=== PATIENT | female | born 1995 | race Caucasian/White ===

== ENCOUNTER 2019-07-17 07:30 | Inpatient (IN) | payer MEDICAID ==
[~2019-07-17] VITALS: Ht 172.7 cm; Wt 146.5 kg
[2019-07-17] MEDS ORDERED: LR 1,000 ML IV ONE (10:57)
[2019-07-17] MEDS ORDERED: CEFAZOLIN 2 GM IVPB PREMIX 50 ML IV ONE ×2 (11:00→12:45)
[2019-07-17 11:44] LABS: BASOPHILS # (AUTO) 0.1 K/uL (0.0-0.2); BASOPHILS % (AUTO) 0.6 % (0.0-2.0); EOSINOPHILS # (AUTO) 0.1 K/uL (0.0-0.4); HEMATOCRIT 33.4 % (36-48); HEMOGLOBIN 10.6 g/dL (12.0-16.0); LYMPHOCYTES % (AUTO) 14.8 % (20.5-51.5); MEAN CORPUSCULAR HEMOGLOBIN 23 pg (27-31); MEAN CORPUSCULAR HGB CONC 32 % (32-36); MEAN CORPUSCULAR VOLUME 72 fL (79.0-98.0); MONOCYTES # (AUTO) 0.6 K/uL (0.0-1.0); MONOCYTES % (AUTO) 4.3 % (1.7-9.3); NEUTROPHILS # (AUTO) 10.7 K/uL (1.8-7.7); NEUTROPHILS % (AUTO) 79.3 % (40.0-70.0); PLATELET COUNT (AUTO) 328 K/uL (130-430); RED BLOOD CELL COUNT(AUTO) 4.65 MIL/uL (4.2-6.2); RED CELL DISTRIBUTION WIDTH 14.6 % (9.0-15.0); WHITE BLOOD COUNT (AUTO) 13.6 K/uL (4.8-10.8)
[2019-07-17] MEDS ORDERED: NS IRRIG SOLN 1000 ML IR ONE (12:45)
[2019-07-17] MEDS ORDERED: MIDAZOLAM HCL 5 MG/5 ML VIAL IVP ONE (12:45)
[2019-07-17] MEDS ORDERED: fentaNYL CITRATE 250 MCG/5 ML AMP IV ONE (12:45)
[2019-07-17] MEDS ORDERED: MORPHINE SULFATE 10MG/10ML PF AMP EP ONE (12:45)
[2019-07-17] MEDS ORDERED: OXYTOCIN 10 UNIT/ML VIAL IV ONE (12:45)
[2019-07-17] MEDS ORDERED: SUCCINYLCHOLINE CHLORIDE 20 MG/ML(QUELICIN) IVP ONE (12:45)
[2019-07-17] MEDS ORDERED: METHYLERGONOVINE MALEATE 0.2 MG/ML AMP IM ONE (12:45)
[2019-07-17] MEDS ORDERED: ONDANSETRON HCL 4 MG/2 ML VIAL IVP ONE (12:45)
[2019-07-17] MEDS ORDERED: SEVOFLURANE 15 MIN GAS INH ONE (12:45)
[2019-07-17] MEDS ORDERED: LR 1,000 ML IV.SOLN IV ONE (12:45)
[2019-07-17] MEDS ORDERED: PROPOFOL 200MG/ 20ML VIAL (DIPRIVAN) IV ONE (12:45)
[2019-07-17] MEDS ORDERED: LR 1,000 ML IV SCH (14:05)
[2019-07-17] MEDS ORDERED: HYDROmorphone 1 MG INJ. 1 MG/ML AMPUL IVP PRN ×2 (14:15)
[2019-07-17] MEDS ORDERED: METOCLOPRAMIDE HCL 10 MG/2 ML VIAL IVP PRN (14:15)
[2019-07-17] MEDS ORDERED: HYDROmorphone 2 MG/ML VIAL IVP PRN (14:15)
[2019-07-17] MEDS ORDERED: HYDROmorphone 2 MG/ML VIAL ONE (14:20)
[2019-07-17] MEDS ORDERED: OXYTOCIN/0.9 % SODIUM CHLORIDE 1,000 ML IV ONE ×2 (14:20→18:15)
[2019-07-17] MEDS ORDERED: OXYTOCIN/0.9 % SODIUM CHLORIDE 1,000 ML IV SCH (14:45)
[2019-07-17] MEDS ORDERED: HYDROmorphone 1 MG INJ. 1 MG/ML AMPUL ONE (15:15)
[2019-07-17] MEDS ORDERED: ANUSOL 1 EA SUPP.RECT (PREPARATION H) RC PRN (18:15)
[2019-07-17] MEDS ORDERED: LANOLIN 7 GM OINT. TP PRN (18:15)
[2019-07-17] MEDS ORDERED: BISACODYL 10 MG/SUPPOSITORY RC PRN (18:15)
[2019-07-17] MEDS ORDERED: SENNOSIDES/DOCUSATE SODIUM 1 TAB TABLET(SENOKOT-S) PO PRN (18:15)
[2019-07-17] MEDS ORDERED: DIPH-TET-PERTUS Vaccine 0.5 ML VIAL (ADACEL) I.M. PRN (18:15)
[2019-07-17] MEDS ORDERED: OXYCODONE/ACETAMINOPHEN 5-325 TABLET PO PRN (19:45)
[2019-07-17] MEDS: SIMETHICONE 80 MG TAB.CHEW PO PRN (20:26)
[2019-07-17] MEDS ORDERED: TEMAZEPAM 15 MG CAPSULE PO PRN (21:00)
[2019-07-17] MEDS: OXYCODONE/ACETAMINOPHEN 5-325 TABLET PO PRN (22:24)
[2019-07-18] MEDS: IBUPROFEN 600 MG TABLET PO SCH ×4 (00:16→17:55)
[2019-07-18] MEDS: SIMETHICONE 80 MG TAB.CHEW PO PRN ×4 (00:16→15:15)
[2019-07-18] MEDS: DOCUSATE SODIUM 100 MG CAPSULE PO PRN ×2 (05:09→17:54)
[2019-07-18 07:39] LABS: BASOPHILS % (AUTO) 0.2 % (0.0-2.0); EOSINOPHILS # (AUTO) 0.3 K/uL (0.0-0.4); HEMATOCRIT 27.6 % (36-48); LYMPHOCYTES # (AUTO) 2.3 K/uL (1.0-5.5); LYMPHOCYTES % (AUTO) 18.1 % (20.5-51.5); MEAN CORPUSCULAR HEMOGLOBIN 24 pg (27-31); MEAN CORPUSCULAR HGB CONC 33 % (32-36); MEAN CORPUSCULAR VOLUME 72 fL (79.0-98.0); MONOCYTES % (AUTO) 8.1 % (1.7-9.3); NEUTROPHILS % (AUTO) 71.6 % (40.0-70.0); PLATELET COUNT (AUTO) 269 K/uL (130-430); RED BLOOD CELL COUNT(AUTO) 3.82 MIL/uL (4.2-6.2); RED CELL DISTRIBUTION WIDTH 14.3 % (9.0-15.0); WHITE BLOOD COUNT (AUTO) 12.5 K/uL (4.8-10.8)
[2019-07-18 07:48] VITALS: BP_SYST 121
[2019-07-18] MEDS: OXYCODONE/ACETAMINOPHEN 5-325 TABLET PO PRN (15:15)
[2019-07-19] MEDS: IBUPROFEN 600 MG TABLET PO SCH ×3 (00:02→12:00)
== END 2019-07-19 12:50 | disposition home or self-care (01) | DRG 540 ==
LOC: SPU 10:30
PROVIDERS: ADMIT Obstetrics & Gynecology; ATTEND Obstetrics & Gynecology
PROC: 10D00Z1 Extraction of Products of Conception, Low, Open Approach (ICD-10-PCS; principal; 2019-07-17 12:30)
DX: O16.4 Unspecified maternal hypertension, complicating childbirth (principal); E66.01 Morbid (severe) obesity due to excess calories; O34.211 Maternal care for low transverse scar from previous cesarean delivery; R71.0 Precipitous drop in hematocrit; Z3A.39 39 weeks gestation of pregnancy; Z37.0 Single live birth; O99.214 Obesity complicating childbirth
CPT/HCPCS: 36415; 85025; 86592; 86886; 86900; 86901; 94760; J0330; J0690; J1170; J2210; J2250; J2274; J2405; J2590; J2704; J3010; J7120

== ENCOUNTER 2021-03-02 05:15 | Inpatient (IN) | payer MEDICAID, SELFPAY ==
[~2021-03-02] VITALS: Ht 175.3 cm; Wt 154.2 kg
[2021-03-02] MEDS ORDERED: LR 1,000 ML IV ONE (05:30)
[2021-03-02 05:43] VITALS: BP_SYST 117
[2021-03-02] MEDS ORDERED: CEFAZOLIN 2 GM IVPB PREMIX 50 ML IV ONE ×2 (06:15→06:58)
[2021-03-02 06:36] LABS: BASOPHILS % (AUTO) 0.3 % (0.0-2.0); EOSINOPHILS # (AUTO) 0.2 K/uL (0.0-0.4); EOSINOPHILS % (AUTO) 1.5 % (0.0-4.0); HEMATOCRIT 29.5 % (36-48); HEMOGLOBIN 9.3 g/dL (12.0-16.0); LYMPHOCYTES # (AUTO) 2.4 K/uL (1.0-5.5); LYMPHOCYTES % (AUTO) 18.5 % (20.5-51.5); MEAN CORPUSCULAR HEMOGLOBIN 23 pg (27-31); MEAN CORPUSCULAR HGB CONC 32 % (32-36); MEAN CORPUSCULAR VOLUME 71 fL (79.0-98.0); MONOCYTES % (AUTO) 7.5 % (1.7-9.3); NEUTROPHILS # (AUTO) 9.2 K/uL (1.8-7.7); NEUTROPHILS % (AUTO) 72.2 % (40.0-70.0); PLATELET COUNT (AUTO) 277 K/uL (130-430); RED BLOOD CELL COUNT(AUTO) 4.15 MIL/uL (4.2-6.2); RED CELL DISTRIBUTION WIDTH 14.8 % (9.0-15.0); WHITE BLOOD COUNT (AUTO) 12.7 K/uL (4.8-10.8)
[2021-03-02 06:41] LABS: CALCIUM 8.4 mg/dL (8.4-11.0); CREATININE 0.53 mg/dL (0.55-1.30); POTASSIUM 3.4 mmol/L (3.5-5.1)
[2021-03-02 06:52] LABS: ALBUMIN 2.1 g/dL (3.4-4.8); TOTAL BILIRUBIN 0.1 mg/dL (0.0-1.0)
[2021-03-02] MEDS ORDERED: LR 1,000 ML IV.SOLN IV ONE (07:38)
[2021-03-02] MEDS ORDERED: MORPHINE SULFATE 10MG/10ML PF AMP EP ONE (07:38)
[2021-03-02] MEDS ORDERED: OXYTOCIN 10 UNIT/ML VIAL IM ONE (07:38)
[2021-03-02] MEDS ORDERED: ONDANSETRON HCL 4 MG/2 ML VIAL IVP ONE (07:38)
[2021-03-02] MEDS ORDERED: DEXAMETHASONE SOD PHOSPHATE 4 MG/ML VIAL IVP ONE ×2 (07:38→09:45)
[2021-03-02] MEDS ORDERED: BUPIVACAINE /PF 0.75% 10 ML VIAL INJ ONE (07:38)
[2021-03-02] MEDS ORDERED: NS IRRIG SOLN 1000 ML IR ONE (07:38)
[2021-03-02] MEDS ORDERED: KETOROLAC TROMETHAMINE 60 MG/2 ML VIAL IM PRN (08:30)
[2021-03-02] MEDS ORDERED: DIPHENHYDRAMINE INJ 50 MG/ML VIAL IVP PRN (08:30)
[2021-03-02] MEDS ORDERED: NALOXONE HCL 0.4 MG/ML AMP (NARCAN) IVP PRN ×2 (08:30)
[2021-03-02] MEDS ORDERED: ONDANSETRON HCL 4 MG/2 ML VIAL IVP PRN (08:30)
[2021-03-02 08:38] VITALS: BP_SYST 146
[2021-03-02] MEDS ORDERED: ONDANSETRON HCL 4 MG/2 ML VIAL ONE (09:10)
[2021-03-02] MEDS ORDERED: DEXAMETHASONE SOD PHOSPHATE 4 MG/ML VIAL ONE (09:34)
[2021-03-02] MEDS ORDERED: SCOPOLAMINE HYDROBROMIDE 1 MG PATCH .72 H (TRANSDERM-SCOP) TD SCH (10:00)
[2021-03-02] MEDS ORDERED: SCOPOLAMINE HYDROBROMIDE 1 MG PATCH .72 H (TRANSDERM-SCOP) TD ONE (10:00)
[2021-03-02] MEDS ORDERED: MEASLES,MUMPS&RUBELLA VACC/PF 12500 UNIT/0.5 ML VIAL SUBQ PRN (11:30)
[2021-03-02] MEDS ORDERED: LR 1,000 ML IV SCH (11:30)
[2021-03-02] MEDS ORDERED: HYDROcodone/ACETAMIN 5-325 MG TAB (NORCO/ VICODIN) PO PRN (11:30)
[2021-03-02] MEDS ORDERED: OXYTOCIN/0.9 % SODIUM CHLORIDE 1,000 ML IV ONE (11:30)
[2021-03-02] MEDS ORDERED: OXYCODONE/ACETAMINOPHEN 5-325 TABLET PO PRN (11:30)
[2021-03-02] MEDS ORDERED: LANOLIN 7 GM OINT. TP PRN (11:30)
[2021-03-02] MEDS ORDERED: BISACODYL 10 MG/SUPPOSITORY RC PRN (11:30)
[2021-03-02] MEDS ORDERED: RHO(D) IMMUNE GLOBULIN/MALTOSE 1500 UNITS/1.3 ML (WINHRO) IM PRN (11:30)
[2021-03-02] MEDS ORDERED: DIPH-TET-PERTUS Vaccine 0.5 ML VIAL (ADACEL) I.M. PRN (11:30)
[2021-03-02] MEDS ORDERED: ANUSOL 1 EA SUPP.RECT (PREPARATION H) RC PRN (11:30)
[2021-03-02] MEDS: KETOROLAC TROMETHAMINE 30 MG VIAL IVP SCH (18:16)
[2021-03-02] MEDS ORDERED: TEMAZEPAM 15 MG CAPSULE PO PRN (21:00)
[2021-03-02] MEDS ORDERED: SENNOSIDES/DOCUSATE SODIUM 1 TAB TABLET(SENOKOT-S) PO SCH (21:00)
[2021-03-03] MEDS: KETOROLAC TROMETHAMINE 30 MG VIAL IVP SCH ×2 (00:02→05:59)
[2021-03-03] MEDS: OXYCODONE/ACETAMINOPHEN 5-325 TABLET PO PRN ×3 (03:10→20:30)
[2021-03-03] MEDS: SIMETHICONE 80 MG TAB.CHEW PO PRN ×4 (03:10→20:30)
[2021-03-03] MEDS: CEFAZOLIN 1 GM IVPB PREMIX 50 ML IV SCH ×2 (06:00)
[2021-03-03 08:01] LABS: BASOPHILS # (AUTO) 0.1 K/uL (0.0-0.2); BASOPHILS % (AUTO) 0.9 % (0.0-2.0); EOSINOPHILS # (AUTO) 0.2 K/uL (0.0-0.4); EOSINOPHILS % (AUTO) 1.6 % (0.0-4.0); HEMATOCRIT 24.6 % (36-48); HEMOGLOBIN 7.8 g/dL (12.0-16.0); LYMPHOCYTES # (AUTO) 3.2 K/uL (1.0-5.5); MEAN CORPUSCULAR HEMOGLOBIN 23 pg (27-31); MEAN CORPUSCULAR HGB CONC 32 % (32-36); MEAN CORPUSCULAR VOLUME 73 fL (79.0-98.0); MONOCYTES # (AUTO) 1.1 K/uL (0.0-1.0); MONOCYTES % (AUTO) 7.9 % (1.7-9.3); NEUTROPHILS # (AUTO) 8.8 K/uL (1.8-7.7); NEUTROPHILS % (AUTO) 65.6 % (40.0-70.0); PLATELET COUNT (AUTO) 264 K/uL (130-430); RED BLOOD CELL COUNT(AUTO) 3.38 MIL/uL (4.2-6.2); RED CELL DISTRIBUTION WIDTH 14.8 % (9.0-15.0); WHITE BLOOD COUNT (AUTO) 13.4 K/uL (4.8-10.8)
[2021-03-03] MEDS: DOCUSATE SODIUM 100 MG CAPSULE PO SCH (09:03)
[2021-03-03] MEDS: IBUPROFEN 600 MG TABLET PO SCH ×2 (12:10→17:30)
[2021-03-04] MEDS: IBUPROFEN 600 MG TABLET PO SCH ×2 (05:56)
[2021-03-04] MEDS: SIMETHICONE 80 MG TAB.CHEW PO PRN (05:57)
[2021-03-04] MEDS: DOCUSATE SODIUM 100 MG CAPSULE PO SCH (09:49)
== END 2021-03-04 11:40 | disposition home or self-care (01) | DRG 540 ==
LOC: SPU 05:15
PROVIDERS: ADMIT Obstetrics & Gynecology; ATTEND Obstetrics & Gynecology
PROC: 0UB70ZZ Excision of Bilateral Fallopian Tubes, Open Approach (ICD-10-PCS; 2021-03-02)
PROC: 10D00Z1 Extraction of Products of Conception, Low, Open Approach (ICD-10-PCS; principal; 2021-03-02 07:30)
DX: O99.214 Obesity complicating childbirth (principal); E66.9 Obesity, unspecified; D64.9 Anemia, unspecified; Z20.822 Contact with and (suspected) exposure to COVID-19; O34.211 Maternal care for low transverse scar from previous cesarean delivery; O99.02 Anemia complicating childbirth; Z37.0 Single live birth; Z30.2 Encounter for sterilization
CPT/HCPCS: 36415; 80053; 85025; 86886; 86900; 86901; 88302; J0690; J1100; J1200; J1885; J2274; J2405; J2590; J3490; J7120